=== PATIENT | male | born 1970 | race Caucasian/White ===

== ENCOUNTER 2022-04-01 15:46 | Emergency (ER) | payer OTHER ==
[~2022-04-01 15:46] MED LIST: BENTYL10 MG PO; K-DUR20 MEQ PO; LIPITOR20 MG PO; LISINOPRIL30 MG PO; PAXIL40 MG PO; ZOFRAN4 MG PO
[2022-04-01 17:20] LABS: BASOPHIL 0.7 % (0-2); HCT 38.5 % (42.0-52.0); HGB 12.7 g/dl (13.2-18.0); LYMPHOCYTE 14.8 % (15-48); MCH 28.1 pg (25.0-31.0); MCV 85.2 fL (78.0-100.0); MONOCYTE 7.6 % (0-12); MPV 9.8 fL (6.0-9.5); NEUTROPHIL 75.5 % (41-80); NRBC 0; PLT 310 K/uL (150-400); RBC 4.52 M/uL (4.70-6.00); RDW 15.1 % (11.5-14.0); WBC 10.1 K/uL (4.0-10.5)
[2022-04-01 17:33] LABS: BILIRUBIN - TOTAL 0.3 mg/dL (0.2-1.0); BUN/CREAT RATIO (CALC) 9.9 RATIO; CREATININE 0.91 mg/dL (0.67-1.17); GLOBULIN (CALCULATION) 3.5 g/dL; POTASSIUM 3.8 mmol/L (3.5-5.1); TOTAL PROTEIN 7.5 g/dL (6.4-8.2)
[2022-04-01 17:40] LABS: BILIRUBIN NEGATIVE (NEGATIVE); BLOOD NEGATIVE Ery/uL (NEGATIVE); CLARITY CLEAR (CLEAR); COLOR YELLOW (YELLOW); GLUCOSE (U) NORMAL (NORMAL); LEUKOCYTES NEGATIVE Leu/uL (NEGATIVE); NITRITE NEGATIVE (NEGATIVE); PROTEIN NEGATIVE (NEGATIVE); UROBILINOGEN 0.2 mg/dL (0.2-1.0)
[2022-04-01 17:55] LABS: CORONAVIRUS 2019 SARS-COV-2 NEGATIVE (NEGATIVE); INFLUENZA A NAA NEGATIVE (NEGATIVE)
== END 2022-04-01 20:47 | disposition left against medical advice (07) ==
LOC: FER 15:46
PROVIDERS: Nurse Practitioner Family
DX: R10.11 Right upper quadrant pain (principal); F17.210 Nicotine dependence, cigarettes, uncomplicated; Z88.5 Allergy status to narcotic agent; Z88.8 Allergy status to other drugs, medicaments and biological substances; Z53.29 Procedure and treatment not carried out because of patient's decision for other reasons; Z20.822 Contact with and (suspected) exposure to COVID-19
CPT/HCPCS: 36415; 80053; 81003; 82150; 83690; 84484; 85025; 93005; J1170; J1885; J2270; J2405; J2550; J7030; Q9967; U0002